=== PATIENT | female | born 1990 | race Caucasian/White ===

== ENCOUNTER 2021-11-18 09:58 | Emergency (ER) | payer MEDICAID ==
--- NOTE | 2021-11-18 10:03 | ERPHSYRPT ---
- History of Present Illness Time Seen by Provider: 11/18/21 10:03 Source: patient, family Exam Limitations: no limitations Physician History: This is a 31-year-old white female presents to the emergency department with a couple day history of worsening right lower quadrant and right suprapubic pain. Patient does have associated nausea and vomiting symptoms. Patient has had no abdominal surgery in the past. Patient has no headache. She has no chest pain. She denies shortness of breath. She denies diarrhea. Patient does not think she is . Patient is currently on her menstrual period Timing/Duration: day(s) (2), intermittent, worse Activites at Onset: none Quality: sharpness, stabbing Onset Location: RLQ, suprapubic (Right suprapubic region) Pain Radiation: none Severity of Pain-Max: moderate Severity of Pain-Current: moderate Sexual intercourse history: non-contributory Modifying Factors: Improves With: vomiting Associated Symptoms: abdominal pain, nausea, vomiting Allergies/Adverse Reactions: No Known Drug Allergies Allergy (Unverified 11/18/21 10:22) Travel Risk - International Travel Have you traveled outside of the country in past 3 weeks: No - Coronavirus Screening Are you exhibiting any of the following symptoms?: No Close contact with a COVID-19 positive Pt in past 14-21 Days: No - Review of Systems Constitutional: No Symptoms Eyes: No Symptoms Ears, Nose, & Throat: No Symptoms Respiratory: No Symptoms Cardiac: No Symptoms Abdominal/Gastrointestinal: Abdominal Pain (Right lower quadrant and right suprapubic), Nausea, Vomiting Genitourinary Symptoms: No Symptoms Musculoskeletal: No Symptoms Skin: No Symptoms Neurological: No Symptoms Psychological: No Symptoms Endocrine: No Symptoms Hematologic/Lymphatic: No Symptoms Immunological/Allergic: No Symptoms All Other Systems: Reviewed and Negative - Past Medical History Pertinent Past Medical History: Yes - Past Surgical History Past Surgical History: Yes - Nursing Vital Signs Nursing Vital Signs: Initial Vital Signs Temperature 97.1 F 11/18/21 10:12 Pulse Rate 88 11/18/21 10:12 Respiratory Rate 14 11/18/21 10:12 Blood Pressure 140/81 11/18/21 10:12 O2 Sat by Pulse Oximetry 99 11/18/21 10:12 Pain Scale Pain Intensity 4 - Physical Exam General Appearance: mild distress, alert, anxiety Eye Exam: PERRL/EOMI, eyes nml inspection Ears, Nose, Throat Exam: normal ENT inspection, moist mucous membranes Neck Exam: normal inspection, non-tender, supple, full range of motion Respiratory Exam: normal breath sounds, lungs clear, airway intact, No chest tenderness, No respiratory distress Cardiovascular Exam: regular rate/rhythm, normal heart sounds, normal peripheral pulses Gastrointestinal/Abdomen Exam: soft, normal bowel sounds, tenderness (Right lower quadrant/right suprapubic region), guarding, rebound Pelvic Exam: not done Rectal Exam: not done Back Exam: normal inspection, normal range of motion, No CVA tenderness, No vertebral tenderness Extremity Exam: normal inspection Neurologic Exam: alert, oriented x 3, 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, 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, normal mood/affect, nml cerebellar function, nml station & gait, sensation nml Skin Exam: normal color, warm, dry Lymphatic Exam: No adenopathy SpO2 Interpretation: normal O2 Delivery: Room Air - Course Nursing assessment & vital signs reviewed: Yes Ordered Tests: Active Orders 24 hr Category Date Time Status IV Insertion STAT Care 11/18/21 10:35 Active ABDOMEN AND PELVIS W/0 CONTRAS [CT] Stat Exams 11/18/21 10:52 Completed AMYLASE Stat Lab 11/18/21 10:57 Completed CBC W DIFF Stat Lab 11/18/21 10:57 Completed CMP Stat Lab 11/18/21 10:57 Completed HCG,QUALITATIVE URINE Stat Lab 11/18/21 10:38 Completed LIPASE Stat Lab 11/18/21 10:57 Completed Lactic Acid Stat Lab 11/18/21 10:45 Completed UA W/RFX CULTURE Stat Lab 11/18/21 10:57 Completed Medication Summary Discontinued Medications Generic Name Dose Route Start Last Admin Trade Name Freq PRN Reason Stop Dose Admin Hydromorphone HCl 0.5 mg 11/18/21 10:35 11/18/21 10:46 Hydromorphone 1 Mg/1ml Inj 1 Mg/Ml Syringe IV 11/18/21 10:36 0.5 mg STAT ONE Administration Hydromorphone HCl Confirm 11/18/21 10:43 Hydromorphone 1 Mg/1ml Inj 1 Mg/Ml Syringe Administered 11/18/21 10:44 Dose 1 mg .ROUTE .STK-MED ONE Sodium Chloride 1,000 mls @ 999 mls/hr 11/18/21 10:35 11/18/21 10:47 Sodium Chloride 0.9% 1000 Ml IV 11/18/21 11:35 999 mls/hr .Q1H1M STA Administration Sodium Chloride Confirm 11/18/21 10:43 Sodium Chloride 0.9% 1000 Ml Administered 11/18/21 10:44 Dose 1,000 mls @ ud .ROUTE .STK-MED ONE Ondansetron HCl 4 mg 11/18/21 10:35 11/18/21 10:47 Ondansetron Hcl 4 Mg/2 Ml Vial IV 11/18/21 10:36 4 mg STAT ONE Administration Ondansetron HCl Confirm 11/18/21 10:43 Ondansetron Hcl 4 Mg/2 Ml Vial Administered 11/18/21 10:44 Dose 4 mg .ROUTE .STK-MED ONE Lab/Rad Data: Laboratory Result Diagrams 11/18/21 10:57 11/18/21 10:57 Laboratory Results 11/18/21 11/18/21 11/18/21 Range/Units 10:57 10:57 10:57 WBC 8.2 (4.0-10.5) K/mm3 RBC 4.10 (4.1-5.4) M/mm3 Hgb 11.4 L (12.0-16.0) gm/dl Hct 36.4 (35-47) % MCV 88.8 (78-100) fl MCH 27.8 (26-32) pg MCHC 31.3 L (32-36) g/dl RDW 14.1 H (11.5-14.0) % Plt Count 258 (150-450) K/mm3 MPV 10.5 (7.5-11.0) fl Gran % 74.2 H (36.0-66.0) % Eos # (Auto) 0.22 (0-0.5) Absolute Lymphs (auto) 1.36 (1.0-4.6) Absolute Monos (auto) 0.53 (0.0-1.3) Lymphocytes % 16.5 L (24.0-44.0) % Monocytes % 6.4 (0.0-12.0) % Eosinophils % 2.7 (0.00-5.0) % Basophils % 0.2 (0.0-0.4) % Absolute Granulocytes 6.10 (1.4-6.9) Basophils # 0.02 (0-0.4) Sodium 141 (137-145) mmol/L Potassium 3.8 (3.5-5.1) mmol/L Chloride 107 (98-107) mmol/L Carbon Dioxide 25 (22-30) mmol/L Anion Gap 13.4 (5-15) MEQ/L BUN 7 (7-17) mg/dL Creatinine 0.53 (0.52-1.04) mg/dL Estimated GFR > 60.0 ML/MIN Glucose 102 (74-106) mg/dL Lactic Acid (0.4-2.0) Calcium 9.0 (8.4-10.2) mg/dL Total Bilirubin 0.40 (0.2-1.3) mg/dL AST 23 (14-36) U/L ALT 11 (0-35) U/L Alkaline Phosphatase 50 (38-126) U/L Serum Total Protein 7.4 (6.3-8.2) g/dL Albumin 4.3 (3.5-5.0) g/dL Amylase 72 (30-110) U/L Lipase 107 (23-300) U/L Urinalys Dipstick Clnc MAIN LAB Urine Color YELLOW (YELLOW) Urine Appearance CLEAR (CLEAR) Urine pH 5.5 (5-6) Ur Specific [place] >=1.030 (1.005-1.025) POC Urine Protein Conf NEGATIVE (Negative) Urine Ketones NEGATIVE (NEGATIVE) Urine Nitrite NEGATIVE (NEGATIVE) Urine Bilirubin NEGATIVE (NEGATIVE) Urine Urobilinogen 0.2 (0-1) mg/dL Urine Leukocytes NEGATIVE (NEGATIVE) Urine WBC (Auto) 0-2 (0-5) /HPF Urine RBC (Auto) 0-2 (0-2) /HPF U Epithel Cells (Auto) FEW (FEW) /HPF Urine Bacteria (Auto) FEW (NEGATIVE) /HPF Urine RBC TRACE NON-HEM (0-5) José Miguel/ul Urine Mucus (Auto) SLIGHT (NEGATIVE) /HPF Ur Culture Indicated? NO Urine Glucose NEGATIVE (NEGATIVE) mg/dL Urine HCG, Qual (Negative) 11/18/21 11/18/21 Range/Units 10:45 10:38 WBC (4.0-10.5) K/mm3 RBC (4.1-5.4) M/mm3 Hgb (12.0-16.0) gm/dl Hct (35-47) % MCV (78-100) fl MCH (26-32) pg MCHC (32-36) g/dl RDW (11.5-14.0) % Plt Count (150-450) K/mm3 MPV (7.5-11.0) fl Gran % (36.0-66.0) % Eos # (Auto) (0-0.5) Absolute Lymphs (auto) (1.0-4.6) Absolute Monos (auto) (0.0-1.3) Lymphocytes % (24.0-44.0) % Monocytes % (0.0-12.0) % Eosinophils % (0.00-5.0) % Basophils % (0.0-0.4) % Absolute Granulocytes (1.4-6.9) Basophils # (0-0.4) Sodium (137-145) mmol/L Potassium (3.5-5.1) mmol/L Chloride (98-107) mmol/L Carbon Dioxide (22-30) mmol/L Anion Gap (5-15) MEQ/L BUN (7-17) mg/dL Creatinine (0.52-1.04) mg/dL Estimated GFR ML/MIN Glucose (74-106) mg/dL Lactic Acid 1.6 (0.4-2.0) Calcium (8.4-10.2) mg/dL Total Bilirubin (0.2-1.3) mg/dL AST (14-36) U/L ALT (0-35) U/L Alkaline Phosphatase (38-126) U/L Serum Total Protein (6.3-8.2) g/dL Albumin (3.5-5.0) g/dL Amylase (30-110) U/L Lipase (23-300) U/L Urinalys Dipstick Clnc Urine Color (YELLOW) Urine Appearance (CLEAR) Urine pH (5-6) Ur Specific [place] (1.005-1.025) POC Urine Protein Conf (Negative) Urine Ketones (NEGATIVE) Urine Nitrite (NEGATIVE) Urine Bilirubin (NEGATIVE) Urine Urobilinogen (0-1) mg/dL Urine Leukocytes (NEGATIVE) Urine WBC (Auto) (0-5) /HPF Urine RBC (Auto) (0-2) /HPF U Epithel Cells (Auto) (FEW) /HPF Urine Bacteria (Auto) (NEGATIVE) /HPF Urine RBC (0-5) José Miguel/ul Urine Mucus (Auto) (NEGATIVE) /HPF Ur Culture Indicated? Urine Glucose (NEGATIVE) mg/dL Urine HCG, Qual NEGATIVE (Negative) - Progress Progress: improved, re-examined Air Movement: good Progress Note: 11/18/21 12:33 cat scan abd/pelvis-no acut process Counseled pt/family regarding: lab results, diagnosis, need for follow-up, rad results - Departure Departure Disposition: Home Clinical Impression: Abdominal pain, Pelvic pain Condition: Stable Critical Care Time: No Referrals: FRANCESCO SY DO [ACTIVE STAFF] - Follow up/PCP as directed Additional Instructions: drink plenty of fluids. add ibuprofen 600mg orally 3 times daily for pain control. follow up with green ware caster or primary provider for further management Prescriptions: Hydrocodone/APAP 5/325 [[place] 5/325 mg] 1 each PO Q12H PRN PRN #4 tablet MDD 2 PRN Reason: Pain
[2021-11-18 10:19] VITALS: O2SAT 99
[2021-11-18] MEDS ORDERED: Sodium Chloride 0.9% 1000 ML 1,000 ML ONE (10:43)
[2021-11-18] MEDS ORDERED: Zofran 4 MG/2 ML VIAL ONE (10:43)
[2021-11-18] MEDS ORDERED: Hydromorphone 1 mg/ml Injection ONE (10:43)
[2021-11-18] MEDS: Hydromorphone 1 mg/ml Injection IV ONE (10:46)
[2021-11-18] MEDS: Sodium Chloride 0.9% 1000 ML 1,000 ML IV STA (10:47)
[2021-11-18] MEDS: Zofran 4 MG/2 ML VIAL IV ONE (10:47)
[2021-11-18 10:58] LABS: Basophil (Absolute #) 0.02 (0-0.4); Eosinophil % 2.7 % (0.00-5.0); Eosinophil (Absolute #) 0.22 (0-0.5); Hematocrit 36.4 % (35-47); Hemoglobin 11.4 gm/dl (12.0-16.0); Lymphocyte (Absolute #) 1.36 (1.0-4.6); Lymphocytes % 16.5 % (24.0-44.0); Mean Cell Volume 88.8 fl (78-100); Mean Corpuscular Hemoglobin 27.8 pg (26-32); Mean Corpuscular Hgb Concent. 31.3 g/dl (32-36); Mean Platelet Volume 10.5 fl (7.5-11.0); Monocyte (Absolute #) 0.53 (0.0-1.3); Monocytes % 6.4 % (0.0-12.0); Neutrophil % 74.2 % (36.0-66.0); Platelet Count 258 K/mm3 (150-450); Red Cell Distribution Width 14.1 % (11.5-14.0); White Blood Count 8.2 K/mm3 (4.0-10.5)
[2021-11-18 11:00] LABS: Appearance CLEAR (CLEAR); Bilirubin NEGATIVE (NEGATIVE); Dipstick done @ ? MAIN LAB; Glucose NEGATIVE (NEGATIVE); Ketones NEGATIVE (NEGATIVE); Nitrite NEGATIVE (NEGATIVE); Ph 5.5 (5-6); Protein,Urine Dip NEGATIVE (Negative); RBC TRACE NON-HEM Ery/ul (0-5); Specific Gravity >=1.030 (1.005-1.025); Urobilinogen 0.2 mg/dL (0-1)
[2021-11-18 11:01] LABS: Mucus SLIGHT /HPF (NEGATIVE); WBC 0-2 /HPF (0-5)
[2021-11-18 11:02] LABS: Bacteria FEW /HPF (NEGATIVE); Epithelial Cells FEW /HPF (FEW); RBC 0-2 /HPF (0-2); Urine Cultured Indicated? NO
[2021-11-18 11:20] LABS: ALBUMIN 4.3 g/dL (3.5-5.0); ALKALINE PHOSPHATASE 50 U/L (38-126); AMYLASE 72 U/L (30-110); ANION GAP 13.4 MEQ/L (5-15); BLOOD UREA NITROGEN 7 mg/dL (7-17); CHLORIDE 107 mmol/L (98-107); Carbon Dioxide 25 mmol/L (22-30); Creatinine 1 0.53 mg/dL (0.52-1.04); EST GLOMERULAR FILTRATION RATE > 60.0 ML/MIN; Glucose 102 mg/dL (74-106); LIPASE 107 U/L (23-300); Potassium 3.8 mmol/L (3.5-5.1); SGOT/AST 23 U/L (14-36); SGPT/ALT 11 U/L (0-35); SODIUM 141 mmol/L (137-145); Total Protein 7.4 g/dL (6.3-8.2)
[2021-11-18 12:28] VITALS: BP 99/77; PULSE 67
--- NOTE | 2021-11-18 12:29 | XRAY ---
Exam: CT abdomen and pelvis without IV contrast from 11/18/2021. CTDI: 8.21 mGy Comparison: [None.] Indication: 31-year-old female with right lower quadrant abdominal pain for 3 days. Findings: Non-IV contrast axial images were obtained through the abdomen and pelvis. Reconstructed coronal and sagittal images were created and reviewed. No oral contrast was given. The visualized lung bases show no focal consolidation. No pleural effusion is seen. The liver, spleen, pancreas, and adrenal glands appear to be normal. The gallbladder is of normal size and reveals no dense calcifications within it. The kidneys are of normal size and reveal no calcifications or hydronephrosis. The ureters are of normal diameter and reveal no ureterolith. No urinary bladder stone is seen. The urinary bladder is only minimally distended. The abdominal aorta is of normal caliber. There is no significant retroperitoneal or mesenteric lymphadenopathy. The bowel is of normal diameter. The appendix is seen within the right lower quadrant and appears unremarkable. A mild amount of scattered stool is seen within the colon. The pelvis reveals no suspicious mass. No significant ovarian abnormality is identified. However, crowding of adjacent nonopacified bowel limits evaluation somewhat in this regard. The uterus appears grossly unremarkable on this non-IV contrast study. No free air or free fluid is seen within the abdomen or pelvis. The visualized bones appear unremarkable. Impression: Negative examination. No findings to suggest appendicitis are seen within the right lower quadrant.
== END 2021-11-18 13:12 | disposition home or self-care (01) ==
LOC: ED 09:58
DX: R10.31 Right lower quadrant pain (principal); R10.2 Pelvic and perineal pain; R11.2 Nausea with vomiting, unspecified; Z79.891 Long term (current) use of opiate analgesic
CPT/HCPCS: 36000; 36415; 74176; 80053; 81015; 82150; 83605; 83690; 84703; 85025; 96374; 96375; 99284; J1170; J2405

== ENCOUNTER 2022-05-02 17:25 | Emergency (ER) | payer MEDICAID, OTHER ==
[2022-05-02] MEDS ORDERED: TORAdol 30 mg Injection IV ONE (18:14)
[2022-05-02] MEDS ORDERED: Sodium Chloride 0.9% 1000 ML 1,000 ML IV STA (18:14)
[2022-05-02] MEDS ORDERED: Zofran 4 MG/2 ML VIAL IV ONE (18:14)
[2022-05-02 18:19] LABS: Appearance CLEAR (CLEAR); Bilirubin SMALL (NEGATIVE); Dipstick done @ ? MAIN LAB; Glucose NEGATIVE (NEGATIVE); Ketones TRACE (NEGATIVE); Nitrite NEGATIVE (NEGATIVE); Protein,Urine Dip 30 (Negative); RBC LARGE Ery/ul (0-5); Specific Gravity >=1.030 (1.005-1.025); Urobilinogen 0.2 mg/dL (0-1)
[2022-05-02 18:28] LABS: Bacteria RARE /HPF (NEGATIVE); Epithelial Cells RARE /HPF (FEW); Mucus MANY /HPF (NEGATIVE); WBC 0-2 /HPF (0-5)
[2022-05-02 18:29] LABS: Urine Cultured Indicated? YES
[2022-05-02 18:30] LABS: Absolute Neutrophil Ct (ANC) 9.56 x10^3/uL (1.4-6.9); Basophil (Absolute #) 0.04 x10^3/uL (0-0.4); Eosinophil % 0.6 % (0.00-5.0); Eosinophil (Absolute #) 0.07 x10^3/uL (0-0.5); Hematocrit 38.5 % (35-47); Hemoglobin 12.3 g/dL (12.0-16.0); Lymphocyte (Absolute #) 1.26 x10^3/uL (1.0-4.6); Lymphocytes % 11.1 % (24.0-44.0); Mean Cell Volume 88.5 fL (78-100); Mean Corpuscular Hemoglobin 28.3 pg (26-32); Mean Corpuscular Hgb Concent. 31.9 g/dL (32-36); Mean Platelet Volume 10.3 fL (7.5-11.0); Monocyte (Absolute #) 0.43 x10^3/uL (0.0-1.3); Monocytes % 3.8 % (0.0-12.0); Neutrophil % 83.8 % (36.0-66.0); Platelet Count 212 x10^3/uL (150-450); Red Blood Count 4.35 x10^6/uL (4.1-5.4); White Blood Count 11.4 x10^3/uL (4.0-10.5)
--- NOTE | 2022-05-02 18:34 | ERPHSYRPT ---
- History of Present Illness Time Seen by Provider: 05/02/22 17:28 Historian: patient Exam Limitations: no limitations Patient Subjective Stated Complaint: C/O right lower abdominal pain with n/v that started around 2:45pm today Triage Nursing Assessment: Patient doubled over in pain. Vomited in ED bathroom just prior to triage assessment. Skin moist. No SOB. Alert and oriented. Physician History: 31 years old female presented in the ER with chief complaint of right lower quadrant/suprapubic area pain, constant, moderate to severe sharp since morning with associated nausea and multiple episodes of nonprojectile, nonbilious vomiting without hematemesis. Patient started her cycle yesterday and does report having similar pain in the past but not this severe. Denies any urinary complaints. Timing/Duration: today, constant, gradual onset, worse Activities at Onset: rest Quality: sharpness Abdominal Pain Onset Location: RLQ, suprapubic Pain Radiation: no radiation Severity of Pain-Max: severe Severity of Pain-Current: severe Modifying Factors: Worsens With: movement, palpation, walking Associated Symptoms: nausea, vomiting Previous symptoms: no prior history Allergies/Adverse Reactions: No Known Drug Allergies Allergy (Verified 05/02/22 18:00) Hx Tetanus, Diphtheria Vaccination/Date Given: Yes Hx Influenza Vaccination/Date Given: No Hx Pneumococcal Vaccination/Date Given: No Immunizations Up to Date: Yes Travel Risk - International Travel Have you traveled outside of the country in past 3 weeks: No - Coronavirus Screening Are you exhibiting any of the following symptoms?: No Close contact with a COVID-19 positive Pt in past 14-21 Days: No - Vaccine Status Have you recieved a Covid-19 vaccination: Yes 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: [employer] - Vaccination Dates Date of 2cond Vaccination (if applicable): 2020 - Review of Systems Constitutional: No Symptoms Eyes: No Symptoms Ears, Nose, & Throat: Loose Teeth Respiratory: No Symptoms Cardiac: No Symptoms Abdominal/Gastrointestinal: Abdominal Pain, Nausea, Vomiting Genitourinary Symptoms: No Symptoms Musculoskeletal: No Symptoms Skin: No Symptoms Neurological: No Symptoms Psychological: No Symptoms Endocrine: No Symptoms Hematologic/Lymphatic: No Symptoms Immunological/Allergic: No Symptoms - Past Medical History Pertinent Past Medical History: No Neurological History: No Pertinent History ENT History: No Pertinent History Cardiac History: No Pertinent History Respiratory History: No Pertinent History Endocrine Medical History: No Pertinent History Musculoskeletal History: No Pertinent History History: No Pertinent History Psycho-Social History: No Pertinent History Female Reproductive Disorders: No Pertinent History - Past Surgical History Past Surgical History: Yes Neuro Surgical History: No Pertinent History Cardiac: No Pertinent History Respiratory: No Pertinent History Gastrointestinal: No Pertinent History Genitourinary: No Pertinent History Musculoskeletal: No Pertinent History Female Surgical History: No Pertinent History - Social History Smoking Status: Current every day smoker How long have you smoked: 15 years Exposure to second hand smoke: No Drug Use: none Patient Lives Alone: No - Female History Hx Last Menstrual Period: NOW Hx Now: (UNKN) - Nursing Vital Signs Nursing Vital Signs: Initial Vital Signs Temperature 97.6 F 05/02/22 18:00 Pulse Rate 86 05/02/22 18:00 Respiratory Rate 20 05/02/22 18:00 Blood Pressure 125/91 05/02/22 18:00 O2 Sat by Pulse Oximetry 99 05/02/22 18:00 Pain Scale Pain Intensity 1 - Physical Exam General Appearance: no apparent distress, alert Eye Exam: PERRL/EOMI Ears, Nose, Throat Exam: pharynx normal Neck Exam: normal inspection, supple, full range of motion Respiratory Exam: normal breath sounds, lungs clear Cardiovascular Exam: regular rate/rhythm, normal heart sounds Gastrointestinal/Abdomen Exam: soft, normal bowel sounds, tenderness (Right lower quadrant/suprapubic area), guarding Back Exam: normal inspection, normal range of motion, No CVA tenderness Extremity Exam: normal inspection, normal range of motion Neurologic Exam: alert, oriented x 3, cooperative Skin Exam: normal color SpO2 Interpretation: normal SpO2: 99 O2 Delivery: Room Air Ordered Tests: Active Orders 24 hr Category Date Time Status IV Insertion STAT Care 05/02/22 18:14 Active NPO (ED) STAT Care 05/02/22 18:14 Active ABDOMEN AND PELVIS W/0 CONTRAS [CT] Stat Exams 05/02/22 18:14 Taken CBC W DIFF Stat Lab 05/02/22 18:25 Completed CMP Stat Lab 05/02/22 18:25 Completed CULTURE,URINE Stat Lab 05/02/22 18:09 Received HCG,QUALITATIVE URINE Stat Lab 05/02/22 18:09 Completed Lactic Acid Stat Lab 05/02/22 18:14 Completed UA W/RFX CULTURE Stat Lab 05/02/22 18:09 Completed Medication Summary Discontinued Medications Generic Name Dose Route Start Last Admin Trade Name Meghan PRN Reason Stop Dose Admin Sodium Chloride 1,000 mls @ 999 mls/hr 05/02/22 18:14 05/02/22 19:51 Sodium Chloride 0.9% 1000 Ml IV 05/02/22 19:14 Infused .Q1H1M STA Infusion Sodium Chloride Confirm 05/02/22 18:48 Sodium Chloride 0.9% 1000 Ml Administered 05/02/22 18:49 Dose 1,000 mls @ ud .ROUTE .STK-MED ONE Ketorolac Tromethamine 30 mg 05/02/22 18:14 05/02/22 18:52 Ketorolac Tromethamine 30 Mg/Ml Inj IV 05/02/22 18:15 30 mg STAT ONE Administration Ketorolac Tromethamine Confirm 05/02/22 18:48 Ketorolac Tromethamine 30 Mg/Ml Inj Administered 05/02/22 18:49 Dose 30 mg .ROUTE .STK-MED ONE Ondansetron HCl 4 mg 05/02/22 18:14 05/02/22 18:51 Ondansetron Hcl 4 Mg/2 Ml Vial IV 05/02/22 18:15 4 mg STAT ONE Administration Ondansetron HCl Confirm 05/02/22 18:47 Ondansetron Hcl 4 Mg/2 Ml Vial Administered 05/02/22 18:48 Dose 4 mg .ROUTE .STK-MED ONE Lab/Rad Data: Laboratory Result Diagrams 05/02/22 18:25 05/02/22 18:25 Laboratory Results 05/02/22 05/02/22 05/02/22 Range/Units 18:25 18:25 18:14 WBC 11.4 H (4.0-10.5) x10^3/uL RBC 4.35 (4.1-5.4) x10^6/uL Hgb 12.3 (12.0-16.0) g/dL Hct 38.5 (35-47) % MCV 88.5 (78-100) fL MCH 28.3 (26-32) pg MCHC 31.9 L (32-36) g/dL RDW 14.0 (11.5-14.0) % Plt Count 212 (150-450) x10^3/uL MPV 10.3 (7.5-11.0) fL Gran % 83.8 H (36.0-66.0) % Immature Gran % (Auto) 0.3 (0.00-0.4) % Nucleat RBC Rel Count 0.0 (0.00-0.1) % Eos # (Auto) 0.07 (0-0.5) x10^3/uL Immature Gran # (Auto) 0.03 (0.00-0.03) x10^3u/L Absolute Lymphs (auto) 1.26 (1.0-4.6) x10^3/uL Absolute Monos (auto) 0.43 (0.0-1.3) x10^3/uL Absolute Nucleated RBC 0.00 (0.00-0.01) x10^3u/L Lymphocytes % 11.1 L (24.0-44.0) % Monocytes % 3.8 (0.0-12.0) % Eosinophils % 0.6 (0.00-5.0) % Basophils % 0.4 (0.0-0.4) % Absolute Granulocytes 9.56 H (1.4-6.9) x10^3/uL Basophils # 0.04 (0-0.4) x10^3/uL Sodium 142 (137-145) mmol/L Potassium 3.9 (3.5-5.1) mmol/L Chloride 108 H (98-107) mmol/L Carbon Dioxide 25 (22-30) mmol/L Anion Gap 11.9 (5-15) MEQ/L BUN 8 (7-17) mg/dL Creatinine 0.59 (0.52-1.04) mg/dL Estimated GFR > 60.0 ML/MIN Glucose 112 H (74-106) mg/dL Lactic Acid 1.0 (0.4-2.0) Calcium 9.0 (8.4-10.2) mg/dL Total Bilirubin 0.60 (0.2-1.3) mg/dL AST 22 (14-36) U/L ALT 14 (0-35) U/L Alkaline Phosphatase 67 (38-126) U/L Serum Total Protein 8.3 H (6.3-8.2) g/dL Albumin 4.6 (3.5-5.0) g/dL Urinalys Dipstick Clnc Urine Color (YELLOW) Urine Appearance (CLEAR) Urine pH (5-6) Ur Specific [place] (1.005-1.025) POC Urine Protein Conf (Negative) Urine Ketones (NEGATIVE) Urine Nitrite (NEGATIVE) Urine Bilirubin (NEGATIVE) Urine Urobilinogen (0-1) mg/dL Urine Leukocytes (NEGATIVE) Urine WBC (Auto) (0-5) /HPF Urine RBC (Auto) (0-2) /HPF U Epithel Cells (Auto) (FEW) /HPF Urine Bacteria (Auto) (NEGATIVE) /HPF Urine RBC (0-5) José Miguel/ul Urine Mucus (Auto) (NEGATIVE) /HPF Ur Culture Indicated? Urine Glucose (NEGATIVE) mg/dL Urine HCG, Qual (Negative) 05/02/22 05/02/22 Range/Units 18:09 18:09 WBC (4.0-10.5) x10^3/uL RBC (4.1-5.4) x10^6/uL Hgb (12.0-16.0) g/dL Hct (35-47) % MCV (78-100) fL MCH (26-32) pg MCHC (32-36) g/dL RDW (11.5-14.0) % Plt Count (150-450) x10^3/uL MPV (7.5-11.0) fL Gran % (36.0-66.0) % Immature Gran % (Auto) (0.00-0.4) % Nucleat RBC Rel Count (0.00-0.1) % Eos # (Auto) (0-0.5) x10^3/uL Immature Gran # (Auto) (0.00-0.03) x10^3u/L Absolute Lymphs (auto) (1.0-4.6) x10^3/uL Absolute Monos (auto) (0.0-1.3) x10^3/uL Absolute Nucleated RBC (0.00-0.01) x10^3u/L Lymphocytes % (24.0-44.0) % Monocytes % (0.0-12.0) % Eosinophils % (0.00-5.0) % Basophils % (0.0-0.4) % Absolute Granulocytes (1.4-6.9) x10^3/uL Basophils # (0-0.4) x10^3/uL Sodium (137-145) mmol/L Potassium (3.5-5.1) mmol/L Chloride (98-107) mmol/L Carbon Dioxide (22-30) mmol/L Anion Gap (5-15) MEQ/L BUN (7-17) mg/dL Creatinine (0.52-1.04) mg/dL Estimated GFR ML/MIN Glucose (74-106) mg/dL Lactic Acid (0.4-2.0) Calcium (8.4-10.2) mg/dL Total Bilirubin (0.2-1.3) mg/dL AST (14-36) U/L ALT (0-35) U/L Alkaline Phosphatase (38-126) U/L Serum Total Protein (6.3-8.2) g/dL Albumin (3.5-5.0) g/dL Urinalys Dipstick Clnc MAIN LAB Urine Color YELLOW (YELLOW) Urine Appearance CLEAR (CLEAR) Urine pH 6.0 (5-6) Ur Specific [place] >=1.030 (1.005-1.025) POC Urine Protein Conf 30 (Negative) Urine Ketones TRACE (NEGATIVE) Urine Nitrite NEGATIVE (NEGATIVE) Urine Bilirubin SMALL (NEGATIVE) Urine Urobilinogen 0.2 (0-1) mg/dL Urine Leukocytes NEGATIVE (NEGATIVE) Urine WBC (Auto) 0-2 (0-5) /HPF Urine RBC (Auto) 6-10 (0-2) /HPF U Epithel Cells (Auto) RARE (FEW) /HPF Urine Bacteria (Auto) RARE (NEGATIVE) /HPF Urine RBC LARGE (0-5) José Miguel/ul Urine Mucus (Auto) MANY (NEGATIVE) /HPF Ur Culture Indicated? YES Urine Glucose NEGATIVE (NEGATIVE) mg/dL Urine HCG, Qual NEGATIVE (Negative) - Progress Progress: improved Progress Note: 05/02/22 20:45 31 years old is evaluated for right lower quadrant/suprapubic pain with nausea and vomiting. She is given fluids along with symptomatic treatment, acute abdomen work-up showed normal white count, grossly unremarkable chemistries. No definite of UTI. CT abdomen pelvis negative for any acute inflammatory process or any other acute findings. Patient does have similar symptoms in the past with menstrual cycle and this could be related to it. Recommended Tylenol/ibuprofen and outpatient follow-up. Discussed signs symptoms of worsen ing needing return to ER which she seems understanding. Stable for discharge. Counseled pt/family regarding: lab results, diagnosis, need for follow-up, rad results, smoking cessation - Departure Departure Disposition: Home Clinical Impression: Lower abdominal pain, Menstrual syndrome Condition: Stable Critical Care Time: No Referrals: DOCTOR,NO FAMILY [Primary Care Provider] - Follow up/PCP as directed SHELLI LYNN MD [ACTIVE STAFF] - Follow Up with PCP/3 days Instructions: Severe Abdominal Pain Additional Instructions: Drink plenty of fluids. Take Tylenol/ibuprofen as needed. Follow-up with primary care for reevaluation. Return to ER for any worsening of pain, intractable vomiting/fever chills etc. Prescriptions: Ibuprofen 600 mg PO Q6HPRN PRN 10 Days #20 tablet PRN Reason: Pain
[2022-05-02 18:46] LABS: ALBUMIN 4.6 g/dL (3.5-5.0); ALKALINE PHOSPHATASE 67 U/L (38-126); ANION GAP 11.9 MEQ/L (5-15); BLOOD UREA NITROGEN 8 mg/dL (7-17); CHLORIDE 108 mmol/L (98-107); Carbon Dioxide 25 mmol/L (22-30); Creatinine 1 0.59 mg/dL (0.52-1.04); EST GLOMERULAR FILTRATION RATE > 60.0 ML/MIN; Glucose 112 mg/dL (74-106); Potassium 3.9 mmol/L (3.5-5.1); SGOT/AST 22 U/L (14-36); SGPT/ALT 14 U/L (0-35); SODIUM 142 mmol/L (137-145); Total Protein 8.3 g/dL (6.3-8.2)
[2022-05-02] MEDS ORDERED: Zofran 4 MG/2 ML VIAL ONE (18:47)
[2022-05-02] MEDS ORDERED: Sodium Chloride 0.9% 1000 ML 1,000 ML ONE (18:48)
[2022-05-02] MEDS ORDERED: TORAdol 30 mg Injection ONE (18:48)
[2022-05-02 21:00] VITALS: BP 104/68; PULSE 70; O2SAT 97
--- NOTE | 2022-05-03 07:34 | XRAY ---
Indication: Abdomen and pelvic pain. Nausea and vomiting. Multiple contiguous axial images obtained through the abdomen and pelvis without contrast. Comparison: November 18, 2021 Lung bases remain clear. Heart not enlarged. Noncontrasted stomach and bowel loops appear nonobstructed with normal appendix. No free fluid/air. New tampon in situ. 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 Remaining liver, gallbladder, pancreas, spleen, adrenal glands, kidneys, ureters, bladder, uterus, and aorta are unremarkable for noncontrast exam. Osseous structures intact. Impression: Continued negative CT abdomen/pelvis without contrast exam. Comment: Preliminary interpretation made by [facility]. No critical discrepancy.
== END 2022-05-02 21:05 | disposition home or self-care (01) ==
LOC: ED 17:25
DX: R10.31 Right lower quadrant pain (principal); R10.2 Pelvic and perineal pain; R11.2 Nausea with vomiting, unspecified; Z72.0 Tobacco use
CPT/HCPCS: 36000; 36415; 74176; 80053; 81015; 81025; 83605; 85025; 87086; 96360; 96374; 96375; 99284; J1885; J2405